=== PATIENT | female | born 1955 | race Caucasian/White ===

== ENCOUNTER 2016-04-28 08:49 | Day surgery (SDC) | payer OTHER ==
[~2016-04-28] VITALS: Ht 165.1 cm; Wt 88.6 kg
[~2016-04-28 08:49] MED LIST: 0.9% Sodium Chloride 1,000 ML IV SCH; ACYC400T2 PO; ATEN100T PO; CALC600T12 PO; DOXY50CA2 PO; HYDR25TA4 PO; MULT-1073 PO; SIMV40TA5 PO; Sodium Chloride LOK Flush 10 mL Syringe IV PRN; fentaNYL-PF 50 mCg/mL 2 mL Inj IVPUSH PRN
[2016-04-28 09:08] VITALS: BP 140/74; PULSE 58; RESP 14; O2SAT 98
[2016-04-28 10:08] VITALS: BP 115/66; PULSE 56; RESP 17; O2SAT 96
[2016-04-28 10:18] VITALS: BP 129/67; PULSE 55; RESP 17; O2SAT 95
--- NOTE | 2016-04-28 10:27 | ENDO ---
[address] [address] ENDOSCOPY PROCEDURE PATIENT: NAVYA ESPINOZA : 1955 MR#: [id number] ADMIT: 04/28/2016 JOB ID: [id number] DATE: 04/28/2016 TYPE OF OPERATION: Colonoscopy with biopsy. PREOPERATIVE DIAGNOSIS(ES): Diarrhea. POSTOPERATIVE DIAGNOSIS(ES): 1. A very tortuous colon and the patient was in pain during the procedure. 2. A 5 mm right colon polyp removed by cold biopsy forceps. 3. A single diverticulum seen in the right side of the colon. 4. Moderate internal hemorrhoids. ANESTHESIA: 1. Fentanyl 175 mcg. 2. Versed 8 mg IV administered. COMPLICATIONS: None. BLOOD LOSS: Minimal. DESCRIPTION OF PROCEDURE: After risks and benefits were explained to the patient, informed consent was obtained. After anesthesia administered, colonoscope was then inserted from the rectum to the cecum. Mucosa carefully examined. Prep of the patient was excellent. After procedure was done, the scope was withdrawn and procedure was terminated. FINDINGS: Upon inspection of the anus, no masses, hemorrhoids, ulcers or fissures that were seen. Throughout the entire examination, there was a 5 mm right colon polyp removed by cold biopsy forceps. There was also a single diverticulum. This was a very torturous and difficult colon. The patient was in pain during the procedure. Biopsies were taken from the terminal ileum and random colon. Retroflexion showed moderate internal hemorrhoids. IMPRESSION: 1. Mild internal hemorrhoids. 2. Single diverticulum in the ascending colon. 3. A 5 mm ascending colon polyp, removed by cold biopsy forceps. 4. Difficult tortuous colon. The patient was in pain during the procedure. RECOMMENDATIONS: 1. Await pathology results. 2. High-fiber diet. 3. For future procedures, I would highly recommend monitored anesthesia care given patient was in pain during the procedure. 4. Followup in GI clinic as needed.
[2016-04-28 10:28] VITALS: BP 155/71; PULSE 51; RESP 17; O2SAT 99
--- NOTE | 2016-04-29 14:13 | PATH ---
SURGICAL PATHOLOGY Attending Physician:Jai Marni MD CASE STATUS: Signed Out PATIENT NAME: NAVYA ESPINOZA PID: [id number] : 1955 DATE COLLECTED:04/28/2016 15:21 SPECIMEN: 1: Colon, Biopsy 2: Ileum, Biopsy 3: Colon, Biopsy CLINICAL HISTORY: 1).ASCENDING POLYP X1 2).TERMINAL ILEUM BIOPSY 3).RANDOM COLON BIOPSY FINAL DIAGNOSIS: 1.ASCENDING COLON POLYP: SESSILE SERRATED ADENOMA. 2.TERMIMAL ILEUM BIOPSY: CHRONIC INFLAMMATION WITH FOCAL AREAS OF MUCOSAL EROSION. Negative for granulomas. Negative for dysplasia and malignancy. 3.RANDOM COLON BIOPSIES: FRAGMENTS OF NORMAL-APPEARING COLON MUCOSA. Negative for significant architectural distortion. Negative for significant inflammation, dysplasia and malignancy. ICD10 code D12.2 GROSS DESCRIPTION: The specimen is received in three formalin filled containers labeled with the patient's name. 1). The specimen is sublabeled "ascending colon polyp" and consists of a 0.3 x 0.3 x 0.3 CM portion of tissue which is entirely submitted in cassette 1A. 2). The specimen is sublabeled " TI " and consists of a 0.3 x 0.3 x 0.2 CM portion of tissue which is entirely submitted in cassette 2A. 3). The specimen is sublabeled "random colon" and consists of multiple portions of tissue which aggregate to 0.4 x 0.4 x 0.2 CM. The specimen is entirely submitted in cassette 3A. 04/28/2016 [facility] MICRO DESCRIPTION: See diagnosis. ICD-9 CODES: CPT CODES: 1: 55733 2: 81445 3: 48263 Electronically Signed Out Pb Moore MD [facility] [address], [place] [address] Technical component performed at [facility], [facility] [address], [place], [address]
== END 2016-04-28 23:59 | disposition home or self-care (01) ==
LOC: END 08:49
PROVIDERS: ATTEND Internal Medicine Gastroenterology
DX: D12.2 Benign neoplasm of ascending colon (principal); R19.7 Diarrhea, unspecified; K57.30 Diverticulosis of large intestine without perforation or abscess without bleeding; K64.8 Other hemorrhoids; I10 Essential (primary) hypertension
CPT/HCPCS: 45380; 99153; G0500; J2250; J3010; J7030